=== PATIENT | male | born 1995 | race Caucasian/White ===

== ENCOUNTER 2016-09-07 15:33 | Emergency (ER) | payer SELFPAY ==
[~2016-09-07] VITALS: Ht 172.7 cm; Wt 81.8 kg
[2016-09-07 15:35] VITALS: BP 126/64; PULSE 76; RESP 18; TEMP 97.6; O2SAT 98
[2016-09-07] MEDS ORDERED: VIST25CA PO (17:36)
--- NOTE | 2016-09-07 17:36 | PD ---
HPI Chief Complaint: Psychiatric Symptoms Time Seen by Provider: 17:33 Travel History International Travel<30 days: No Contact w/Intl Traveler<30days: No Traveled to known affect area: No History of Present Illness HPI 21-year-old male with no significant medical history presents to the emergency department. Patient states that he has been having depression and anxiety lately. He did not know where ago and states that he does not have insurance. Denies suicidal or homicidal ideations. Does not currently have a plan for suicide and has never thought of a plan during [place]. Patient has no history of depression but feels that he needs to talk to somebody and be put on some medication. Denies any recent illnesses, fever, or chills. Has no other symptoms to report. PFSH Past Medical History Medical History: Denies Significant Hx Social History Alcohol Use: No Tobacco Use: Yes Substance Use: No Allergies-Medications Reported Meds & Prescriptions Reported Meds & Active Scripts Active Vistaril (Hydroxyzine Pamoate) 25 Mg Cap 25 Mg PO TID PRN Review of Systems Except as stated in HPI: all other systems reviewed are Neg Physical Exam Narrative GENERAL: Well-nourished male patient, ambulatory and in no acute distress SKIN: Warm and dry. HEAD: Atraumatic. Normocephalic. EYES: Pupils equal and round. No scleral icterus. No injection or drainage. ENT: No nasal bleeding or discharge. Mucous membranes pink and moist. NECK: Trachea midline. No JVD. CARDIOVASCULAR: Regular rate and rhythm. No murmur appreciated. RESPIRATORY: No accessory muscle use. Clear to auscultation. Breath sounds equal bilaterally. GASTROINTESTINAL: Abdomen soft, non-tender, nondistended. Hepatic and splenic margins not palpable. MUSCULOSKELETAL: No obvious deformities. No clubbing. No cyanosis. No edema. NEUROLOGICAL: Awake and alert. No obvious cranial nerve deficits. Motor grossly within normal limits. Normal speech. Data Data Last Documented VS Vital Signs Date Time Temp Pulse Resp B/P Pulse Ox O2 Delivery O2 Flow Rate FiO2 09/07/16 15:35 97.6 76 18 126/64 98 Room Air MDM Medical Decision Making Medical Screen Exam Complete: Yes Emergency Medical Condition: Yes Medical Record Reviewed: Yes Differential Diagnosis Mood disorder versus personality disorder versus adjustment reaction disorder Narrative Course 21-year-old male presents to the emergency department for evaluation. Patient states that he has been rubbing depression and anxiety. He has no suicidal thoughts and no current plan. I've explained to the patient that I can provide him with resources for outpatient follow-up but we do not start people in the emergency department on medication for this. I have given him Vistaril to take as needed for anxiety but stressed the importance of following up outpatient. He contracts for safety and states he absolutely has no plan to harm himself. I have provided him outpatient resources. He agrees to return immediately with any acute worsening of symptoms. Diagnosis Primary Impression: Anxiety and depression Referrals: [facility] (Out patient) Primary Care Physician Patient Instructions: Anxiety (ED), Depression (ED), General Instructions Additional Instructions: Follow-up with [facility] Return immediately with any acute worsening of symptoms Med/Other Pt SpecificInfo: Prescription(s) given Scripts Hydroxyzine Pamoate (Vistaril)25 Mg Cap25 Mg PO TID PRN (ANXIETY AND/OR INSOMNIA ) #21 CAP Ref 0 Prov:Mar Stein 09/07/16 Disposition: 01 DISCHARGE HOME Condition: Stable Mar Stein Sep 07, 2016 17:36
== END 2016-09-07 17:45 | disposition home or self-care (01) ==
LOC: NETRI 15:33
DX: F32.9 Major depressive disorder, single episode, unspecified (principal); F41.9 Anxiety disorder, unspecified; Z72.0 Tobacco use
CPT/HCPCS: 99283